=== PATIENT | female | born 1980 | race Caucasian/White ===

== ENCOUNTER → 2017-02-12 | Day surgery (SDC) | payer OTHER ==
[2017-02-08 09:52] VITALS: BMI 21.0
[~2017-02-12] VITALS: Ht 170.2 cm; Wt 59.1 kg
[~2017-02-12] MED LIST: ALBU18002 INH; CLON0.5T3 PO; FENT75DI2; FENTANYL CITRATE INJ 50 MCG/1 ML 2 ML VIAL ONE; GABA600T PO; GLYCOPYRROLATE INJ 0.2 MG/ML VIAL ONE; OMEP20CA9 PO; PROPOFOL IV EMULSION 10 MG/ML 20 ML VIAL IV ONE; QUET1TAB32 PO; SODIUM CHLORIDE 0.9% 500ML 500 ML IV ONE; TRAM-10 PO
[2017-02-12 12:23] VITALS: Ht 170.2 cm; Wt 59.1 kg
--- NOTE | 2017-02-12 12:56 | Endo History and Physical ---
History & Physical Date of Service: Feb 12, 2017. Chief Complaint: Ab pain, wt loss Referring Physician: Stan Grant History of Present Illness 36 yo CF who presents for EGD and colonoscopy secondary to abdominal pain and weight loss. Past Medical History Thrombophlebitis, Other Past Surgical History Hx Cardiac Surgery: No Hx Internal Defibrillator: No Hx Pacemaker: No Hx Abdominal Surgery: Yes (Tubal) Hx Post-Op Nausea and Vomiting: No Hx Cancer Surgery: No Hx Thoracic Surgery: No Hx Orthopedic: Yes (Back (screws and plate) B/L feet, L ankle, L hand and arm) Hx Urinary Tract Surgery: No Family History None, Colon CA Social History Smoking Status: Current Every Day Smoker Hx Substance Use: Yes Hx Alcohol Use: No Allergies Coded Allergies: Penicillins (Verified Allergy, Mild, RASH A CHILD, 02/08/17) Buprenorphine (Unverified Allergy, Unknown, UNK, 02/08/17) Cephalexin (Verified Allergy, Unknown, RED SPLOTCHES, 12/08/15) Codeine (Verified Allergy, Unknown, hives, 02/08/17) Moxifloxacin (Unverified Allergy, Unknown, UNK, 02/08/17) Shellfish (Unverified Allergy, Unknown, UNK, 02/08/17) Sulfa Antibiotics (Unverified Allergy, Unknown, UNK, 02/08/17) Sulfamethoxazole w/Trimethoprim (Verified Allergy, Unknown, burning in genitals, 02/08/17) Current Medications Reported Home Medications Medications Dose Route/Sig Max Daily Dose Days Date Category Proair Respiclick (Albuterol Sulfate) 108 Mcg/Act Aer 2 Puff INH QID PRN 02/08/17 Reported Klonopin (Clonazepam) 0.5 Mg Tab 0.5 Mg PO QID PRN 02/08/17 Reported Neurontin (Gabapentin) 600 Mg Tab 600 Mg PO TID 02/08/17 Reported Prilosec (Omeprazole) 20 Mg Cap 20 Mg PO QAM 02/08/17 Reported Seroquel (Quetiapine Fumarate) 50 Mg Tab 50 Mg PO HS 02/08/17 Reported Fentanyl 75 Mcg/Hr Dis 02/08/17 Reported Ultram (Tramadol HCl) 50 Mg Tab 50 Mg PO Q8H PRN 12/08/15 Reported Vital Signs Weight (Kilograms): 59.09 Height (Feet): 5 Height (Inches): 7 Physical Exam General Appearance: WD/WN, no apparent distress Respiratory/Chest: Auscultation: breath sounds normal Cardiovascular: Heart Auscultation: RRR Abdomen: Bowel Sounds: normal Inspection & Palpation: soft, non-distended, no tenderness, guarding & rebound Assessment and Plan Assessment: 36 yo CF who presents for EGD and colonoscopy secondary to abdominal pain and weight loss. Plan: Proceed with EGD and colonoscopy.
--- NOTE | 2017-02-12 15:07 | GI REPORT ---
Procedure Date: 02/12/2017 2:36 PM Procedure: Upper GI endoscopy Indications: Generalized abdominal pain, Weight loss Medicines: Monitored Anesthesia Care Complications: No immediate complications. Estimated Blood Loss: Estimated blood loss: none. Procedure: Pre-Anesthesia Assessment: - Prior to the procedure, a History and Physical was performed, and patient medications and allergies were reviewed. The patient's tolerance of previous anesthesia was also reviewed. The risks and benefits of the procedure and the sedation options and risks were discussed with the patient. All questions were answered, and informed consent was obtained. Prior Anticoagulants: The patient has taken no previous anticoagulant or antiplatelet agents. ASA Grade Assessment: II - A patient with mild systemic disease. After reviewing the risks and benefits, the patient was deemed in satisfactory condition to undergo the procedure. After obtaining informed consent, the endoscope was passed under direct vision. Throughout the procedure, the patient's blood pressure, pulse, and oxygen saturations were monitored continuously. The Scope was introduced through the mouth, and advanced to the second part of duodenum. The upper GI endoscopy was accomplished without difficulty. The patient tolerated the procedure well. Findings: The esophagus was normal. Localized moderate inflammation characterized by erosions was found in the gastric antrum. Biopsies were taken with a cold forceps for histology. The examined duodenum was normal. Impression: - Normal esophagus. - Gastritis. Biopsied. - Normal examined duodenum. Recommendation: - Resume previous diet. - Continue present medications. - Await pathology results. - Return to primary care physician as previously scheduled. Devante Melendez DO 02/12/2017 3:07:08 PM This report has been signed electronically. Note Initiated On: 02/12/2017 2:36 PM I attest to the content of the Intraoperative Record and orders documented therein, exceptions below
--- NOTE | 2017-02-12 15:10 | GI REPORT ---
Procedure Date: 02/12/2017 2:43 PM Procedure: Colonoscopy Indications: Generalized abdominal pain, Weight loss Medicines: Monitored Anesthesia Care Complications: No immediate complications. Estimated Blood Loss: Estimated blood loss: none. Procedure: Pre-Anesthesia Assessment: - Prior to the procedure, a History and Physical was performed, and patient medications and allergies were reviewed. The patient's tolerance of previous anesthesia was also reviewed. The risks and benefits of the procedure and the sedation options and risks were discussed with the patient. All questions were answered, and informed consent was obtained. Prior Anticoagulants: The patient has taken no previous anticoagulant or antiplatelet agents. ASA Grade Assessment: II - A patient with mild systemic disease. After reviewing the risks and benefits, the patient was deemed in satisfactory condition to undergo the procedure. After I obtained informed consent, the scope was passed under direct vision. Throughout the procedure, the patient's blood pressure, pulse, and oxygen saturations were monitored continuously. The scope was introduced through the anus and advanced to the terminal ileum. The colonoscopy was performed without difficulty. The patient tolerated the procedure well. The quality of the bowel preparation was good. The terminal ileum, ileocecal valve, appendiceal orifice, and rectum were photographed. Findings: A 6 mm polyp was found in the ascending colon. The polyp was sessile. The polyp was removed with a hot snare. Resection and retrieval were complete. Non-bleeding internal hemorrhoids were found during retroflexion. The hemorrhoids were small. Impression: - One 6 mm polyp in the ascending colon, removed with a hot snare. Resected and retrieved. - Non-bleeding internal hemorrhoids. Recommendation: - Resume previous diet. - Continue present medications. - Repeat colonoscopy for surveillance based on pathology results. - Return to primary care physician as previously scheduled. Devante Melendez DO 02/12/2017 3:09:49 PM This report has been signed electronically. Note Initiated On: 02/12/2017 2:43 PM I attest to the content of the Intraoperative Record and orders documented therein, exceptions below
--- NOTE | 2017-02-12 15:16 | Discharge Instructions ---
Endoscopy Patient Instructions Date / Procedure(s) Performed Feb 12, 2017. Colonoscopy, EGD Allergy Information Coded Allergies: Penicillins (Verified Allergy, Mild, RASH A CHILD, 02/08/17) Buprenorphine (Unverified Allergy, Unknown, UNK, 02/08/17) Cephalexin (Verified Allergy, Unknown, RED SPLOTCHES, 12/08/15) Codeine (Verified Allergy, Unknown, hives, 02/08/17) Moxifloxacin (Unverified Allergy, Unknown, UNK, 02/08/17) Shellfish (Unverified Allergy, Unknown, UNK, 02/08/17) Sulfa Antibiotics (Unverified Allergy, Unknown, UNK, 02/08/17) Sulfamethoxazole w/Trimethoprim (Verified Allergy, Unknown, burning in genitals, 02/08/17) Discharge Date / Findings Feb 12, 2017. EGD: Gastritis Colonoscopy: Colon polyp, Internal hemorrhoids Medication Instructions OK to resume all medications today as prescribed Provider Instructions Activity Restrictions - No exercising or heavy lifting for 24 hours. - Do not drink alcohol the day of the procedure. - Do not drive a car or operate machinery until the day after the procedure. - Do not make any important decisions or sign important papers in 24 hours after the procedure. Following Day: - Return to full activity which may include returning to work/school. Diet Start your diet with liquids and light foods (jello, soup, juice, toast). Then eat your usual diet if not nauseated. Treatment For Common After Affects For mild abdominal pain, bloating, or excessive gas: - Rest - Eat lightly - Lie on right side Follow-Up Information Follow-up with Stan Grant as scheduled Anesthesia Information What You Should Know You have had a procedure that required some medicine to reduce anxiety and discomfort. This treatment is called moderate sedation. After receiving the treatment, you may be sleepy, but you will be able to breathe on your own. The effects of the treatment may last for several hours. Follow these instructions along with Activity/Diet recommendations noted above: * Do NOT do anything where dizziness or clumsiness would be dangerous. * Rest quietly at home today, then you can be up and about tomorrow. * Have a responsible person stay with you the rest of today. * You may have had an I.V. today. If so, you may take the dressing off later today. Recommendations Call your doctor if: * Trouble breathing * Continuous vomiting for more than 24 hours * Temperature above 101 degrees * Severe abdominal pain or bloating * Pain not relieved by pain medicine ordered * There is increased drainage or redness from any incision * A large amount of rectal bleeding greater than 2-3 tablespoons. (If you had a polyp/s removed or have hemorrhoids, a small amount of blood - from the rectum is to be expected.) * You have any unanswered questions or concerns. IN THE EVENT OF A SERIOUS EMERGENCY, GO TO THE NEAREST EMERGENCY ROOM Your discharge instructions were prepared by provider Devante Melendez. Patient Instructions Signature Page Sonya Valentino Patient (or Guardian) Signature/Date: I have read and understand the instructions given to me by my caregivers. Caregiver/RN/Doctor Signature/Date: The above-named patient and/or guardian has received patient instructions on this date. + Original Patient Signature Page (only) stays with chart. Please make copy for patient.
--- NOTE | 2017-02-12 15:16 | Anesthesiology Progress Note ---
Anesthesia Post Op Note Date & Time Feb 12, 2017 at 15:16 Vital Signs Pain Intensity: 0 Vital Signs Past 12 Hours Date Time Temp Pulse Resp B/P (MAP) Pulse Ox O2 Delivery O2 Flow Rate FiO2 02/12/17 13:01 37.2 82 20 119/65 (83) 97 Room Air Notes Mental Status: alert / awake / arousable, participated in evaluation Pt Amnestic to Procedure: Yes Nausea / Vomiting: adequately controlled Pain: adequately controlled Airway Patency, RR, SpO2: stable & adequate BP & HR: stable & adequate Hydration State: stable & adequate Anesthetic Complications: no major complications apparent
[2017-02-12 15:35] VITALS: BP 133/74; PULSE 77; O2SAT 100
== END | disposition home or self-care (01) ==
LOC: C.GI 12:06
PROVIDERS: ATTEND Internal Medicine
DX: R10.84 Generalized abdominal pain (principal); R63.4 Abnormal weight loss; D12.2 Benign neoplasm of ascending colon; K64.8 Other hemorrhoids; K29.50 Unspecified chronic gastritis without bleeding; B19.20 Unspecified viral hepatitis C without hepatic coma; F41.9 Anxiety disorder, unspecified; J45.909 Unspecified asthma, uncomplicated; Z98.51 Tubal ligation status; Z68.21 Body mass index [BMI] 21.0-21.9, adult; F17.200 Nicotine dependence, unspecified, uncomplicated; Z86.711 Personal history of pulmonary embolism; Z88.0 Allergy status to penicillin; Z88.5 Allergy status to narcotic agent; Z88.2 Allergy status to sulfonamides; Z80.0 Family history of malignant neoplasm of digestive organs